=== PATIENT | female | born 1960 | race Caucasian/White ===

== ENCOUNTER 2019-12-23 18:49 | Emergency (ER) | payer OTHER ==
[2019-12-23] MEDS ORDERED: LYRICA50 MG PO (20:36)
[2019-12-23] MEDS ORDERED: CYMBALTA60 MG PO (20:36)
[2019-12-23] MEDS ORDERED: OMEPRAZOLE DR20 MG (20:36)
[2019-12-23] MEDS ORDERED: LOSARTAN POTASS25 MG PO (20:37)
[2019-12-23] MEDS ORDERED: TRAZODONE50 MG PO (20:38)
[2019-12-23] MEDS ORDERED: WELLBUTRIN100 M2 PO (20:38)
[2019-12-23] MEDS ORDERED: DICYCLOMINE10 MG PO (20:39)
[2019-12-23] MEDS ORDERED: LORTAB 1010 MG PO (20:46)
[2019-12-23 21:25] VITALS: BP 119/64
== END 2019-12-23 21:25 | disposition home or self-care (01) | DRG 563 ==
LOC: ED 18:49
DX: S52.501A Unspecified fracture of the lower end of right radius, initial encounter for closed fracture (principal); E11.9 Type 2 diabetes mellitus without complications; W01.0XXA Fall on same level from slipping, tripping and stumbling without subsequent striking against object, initial encounter; Y92.008 Other place in unspecified non-institutional (private) residence as the place of occurrence of the external cause

== ENCOUNTER 2020-06-10 11:39 | Emergency (ER) | payer OTHER ==
[~2020-06-10 11:39] MED LIST: CYMBALTA60 MG PO; DICYCLOMINE10 MG PO; LORTAB 1010 MG PO; LOSARTAN POTASS25 MG PO; LYRICA50 MG PO; OMEPRAZOLE DR20 MG; TRAZODONE50 MG PO; WELLBUTRIN100 M2 PO
[2020-06-10 12:35] LABS: HEMATOCRIT 40.4 % (37.0-47.0); HEMOGLOBIN 14.1 g/dl (12.0-16.0); IMMATURE GRANULOCYTES 0.4 % (0.0-5.0); MEAN CELL VOLUME 88.4 fL CALC (80.0-100.0); MEAN CORPUSCULAR HGB 30.9 pG CALC (26.0-32.0); MEAN CORPUSCULAR HGB CONC 34.9 g/dL CAL (32.0-36.0); NEUT# 3.86 thou/uL (2.00-7.15); RED BLOOD COUNT 4.57 mill/uL (4.20-5.60)
[2020-06-10] MEDS ORDERED: [UNRECOGNIZED DRUG - OTHER] PO (12:52)
[2020-06-10] MEDS ORDERED: EZETIMIBE10 MG PO (12:54)
[2020-06-10] MEDS ORDERED: ALIGN4 MG PO (12:54)
[2020-06-10] MEDS ORDERED: GABAPENTIN300 M2 PO (12:55)
[2020-06-10] MEDS ORDERED: METHOCARBAMOL500 MG PO (12:55)
[2020-06-10 13:12] LABS: ALBUMIN 4.3 g/dL (3.2-5.0); ALKALINE PHOSPHATASE 109 u/l (38-126); ANION GAP 10 (6-22 (CALC)); BILIRUBIN, TOTAL 0.6 mg/dL (0.0-1.4); BUN 11 mg/dL (7-17); BUN/CREATININE RATIO 18 (12-20 (CALC)); CARBON DIOXIDE 28 mmol/l (22-30); CHLORIDE 102 mmol/l (95-108); CREATININE 0.6 mg/dL (0.5-1.0); GFR > 60 ML/MIN (>=60 (CALC)); GFR FOR AFR.AMER. > 60 ML/MIN (>=60 (CALC)); POTASSIUM 4.2 mmol/l (3.5-5.1); SGOT/AST 39 u/l (14-36); SODIUM 136 mmol/l (137-146); TOTAL PROTEIN 6.9 g/dL (6.3-8.2)
[2020-06-10] MEDS ORDERED: MEDDOSEPAK PO (13:35)
[2020-06-10 13:44] VITALS: BP 138/88
== END 2020-06-10 13:56 | disposition home or self-care (01) | DRG 918 ==
LOC: ED 11:39
DX: T63.481A Toxic effect of venom of other arthropod, accidental (unintentional), initial encounter (principal); L03.114 Cellulitis of left upper limb; E11.40 Type 2 diabetes mellitus with diabetic neuropathy, unspecified; F17.200 Nicotine dependence, unspecified, uncomplicated; Z98.890 Other specified postprocedural states

== ENCOUNTER 2020-06-11 13:36 | Emergency (ER) | payer OTHER ==
[~2020-06-11 13:36] MED LIST changes: +ALIGN4 MG PO; +EZETIMIBE10 MG PO; +GABAPENTIN300 M2 PO; +MEDDOSEPAK PO; +METHOCARBAMOL500 MG PO; +[UNRECOGNIZED DRUG - OTHER] PO
[2020-06-11 15:18] VITALS: BP 129/79
== END 2020-06-11 15:18 | disposition home or self-care (01) | DRG 603 ==
LOC: ED 13:36
DX: L03.114 Cellulitis of left upper limb (principal); I10 Essential (primary) hypertension; G62.9 Polyneuropathy, unspecified

== ENCOUNTER 2022-05-30 10:02 | Emergency (ER) | payer OTHER ==
[~2022-05-30] VITALS: Ht 162.6 cm; Wt 76.8 kg
[2022-05-30 10:13] VITALS: BP 172/110
[2022-05-30 10:15] VITALS: BP 149/95
[2022-05-30] MEDS ORDERED: CEFDINIR300 MG PO (10:39)
[2022-05-30 10:40] VITALS: BP 144/90
[2022-05-30 10:45] VITALS: BP 148/83
[2022-05-30 10:58] VITALS: BP 148/83
[2022-05-30] MEDS ORDERED: ATORVASTATIN CA10 MG PO (10:59)
== END 2022-05-30 10:58 | disposition home or self-care (01) | DRG 603 ==
LOC: ED 10:02
DX: L03.211 Cellulitis of face (principal); G62.9 Polyneuropathy, unspecified; I10 Essential (primary) hypertension; M79.7 Fibromyalgia; F17.200 Nicotine dependence, unspecified, uncomplicated; Z98.1 Arthrodesis status

== ENCOUNTER 2022-07-26 18:54 | Emergency (ER) | payer OTHER ==
[~2022-07-26] VITALS: Ht 162.6 cm; Wt 77.0 kg
[~2022-07-26 18:54] MED LIST changes: +ATORVASTATIN CA10 MG PO; +CEFDINIR300 MG PO
[2022-07-26 19:35] VITALS: BP 146/93
[2022-07-26 19:52] LABS: BASO% 0.2 % (0-3); EOS% 0.7 % (0-8); HEMATOCRIT 43.7 % (37.0-47.0); HEMOGLOBIN 14.9 g/dl (12.0-16.0); IMMATURE GRANULOCYTES 0.3 % (0.0-5.0); LYMPH% 20.4 % (15-41); MEAN CELL VOLUME 89.2 fL CALC (80.0-100.0); MEAN CORPUSCULAR HGB 30.4 pG CALC (26.0-32.0); MEAN CORPUSCULAR HGB CONC 34.1 g/dL CAL (32.0-36.0); MONO% 5.9 % (2-13); NEUT# 7.19 thou/uL (2.00-7.15); NEUT% 72.5 % (42-76); RED BLOOD COUNT 4.9 mill/uL (4.20-5.60); RED CELL DISTRI WIDTH 11.9 % (11.5-15.5); URINE BILIRUBIN - DIPSTICK NEGATIVE (NEGATIVE); URINE BLOOD DIPSTICK TRACE-INTACT (NEGATIVE); URINE COLOR YELLOW; URINE GLUCOSE - DIPSTICK NEGATIVE (NEGATIVE); URINE KETONE TRACE mg/dL (NEGATIVE); URINE LEUK ESTERASE NEGATIVE (NEGATIVE); URINE PH 5.5 (4.5-8.0); URINE PROTEIN - DIPSTICK NEGATIVE (NEG-TRACE); URINE SPECIFIC GRAVITY 1.025; URINE UROBILINOGEN - DIPSTICK 0.2 E.U./dL (0.2)
[2022-07-26 19:55] LABS: URINE NITRITE - DIPSTICK NEGATIVE (Negative)
[2022-07-26 20:03] LABS: ALBUMIN 4.5 g/dL (3.2-5.0); ALKALINE PHOSPHATASE 148 u/l (38-126); ANION GAP 13 (6-22 (CALC)); BILIRUBIN, TOTAL 0.8 mg/dL (0.02-1.3); BUN 9 mg/dL (8-23); BUN/CREATININE RATIO 13 (12-20 (CALC)); CARBON DIOXIDE 25 mmol/l (22-30); CHLORIDE 104 mmol/l (95-108); CREATININE 0.7 mg/dL (0.5-1.0); GFR FOR AFR.AMER. > 60 ML/MIN (>=60 (CALC)); GFR OTHER RACES > 60 ML/MIN (>=60 (CALC)); LIPASE 473 u/l (23-300); POTASSIUM 4.5 mmol/l (3.5-5.1); SGOT/AST 52 u/l (9-36); SODIUM 137 mmol/l (137-146); TOTAL PROTEIN 7.3 g/dL (6.3-8.2)
[2022-07-26 22:09] VITALS: BP 137/77
[2022-07-26] MEDS ORDERED: COMPAZINE10 MG PO (22:14)
[2022-07-26 22:15] VITALS: BP 154/73
[2022-07-26 22:26] VITALS: BP 154/73
== END 2022-07-26 22:36 | disposition home or self-care (01) | DRG 392 ==
LOC: ED 18:54
PROVIDERS: Family Medicine
DX: R11.0 Nausea (principal); R10.31 Right lower quadrant pain; R10.32 Left lower quadrant pain; R10.33 Periumbilical pain; I10 Essential (primary) hypertension; M79.7 Fibromyalgia; G62.9 Polyneuropathy, unspecified
CPT/HCPCS: Q9967